=== PATIENT | male | born 1960 ===

== ENCOUNTER 2020-12-27 05:55 | Day surgery (SDC) | payer OTHER ==
[~2020-12-27 05:55] MED LIST: LIPITOR40 M1 PO; NORVASC5 MG PO; PEPCID40 MG PO; PROTONIX40 MG PO; TAMS0.4C PO; ZESTRIL20 MG PO
== END 2020-12-27 11:30 | disposition home or self-care (01) ==
LOC: CIR.AMB 05:55
PROVIDERS: ATTEND Urology
DX: N47.1 Phimosis (principal); Z20.822 Contact with and (suspected) exposure to COVID-19